=== PATIENT | male | born 1990 | race Caucasian/White ===

== ENCOUNTER 2025-09-29 19:05 | Emergency (ER) | payer MEDICAID ==
[2025-09-29 19:26] VITALS: TEMP 98
--- NOTE | 2025-09-29 19:55 | ERPHSYRPT ---
- History of Present Illness Time Seen by Provider: 09/29/25 19:12 Source: patient Exam Limitations: no limitations Patient Subjective Stated Complaint: c/o leg weakness and potentiel insect bite Triage Nursing Assessment: patient brought to ED by mother with c/o leg weakness and insect bite on left forearm. patient states that he has been having trouble walking the past few days. patient went to [facility] today in [place] and walked out. patient states," I think I got bit by a spider 4 days ago." patient vitals wnl, skin w/n/d, patient has multiple small round red nodules on left lower forearm. patient brought in by wheelchair, denies N/D, states he passed out yesterday and vomitted, doesn't appear to be in any distress at this time. Physician History: 35-year-old male presents to the emergency room bilateral leg numbness that is intermittent patient reports that he sleeps with his legs crossed and he wakes up with his legs falling asleep denies any swelling denies any trauma denies any bleeding or blood clot history denies any weakness patient does report some numbness and paresthesia-like feeling denies any trauma ambulatory baseline now in ED for further eval Timing/Duration: week(s) (1) Severity: mild Associated Symptoms: denies symptoms, No nausea Allergies/Adverse Reactions: morphine Allergy (Verified 09/29/25 19:27) Home Medications: No Reportable Medications [No Reported Medications] 09/29/25 [History] Hx Tetanus, Diphtheria Vaccination/Date Given: Yes Hx Influenza Vaccination/Date Given: No Hx Pneumococcal Vaccination/Date Given: No Travel Risk - International Travel Have you traveled outside of the country in past 3 weeks: No - Emerging Infectious Disease Are you exhibiting symptoms associated with any current EIDs: No - Review of Systems Constitutional: No Fever, No Chills Eyes: No Symptoms Ears, Nose, & Throat: No Symptoms Respiratory: No Cough, No Dyspnea Cardiac: No Chest Pain, No Edema, No Syncope Abdominal/Gastrointestinal: No Abdominal Pain, No Nausea, No Vomiting, No Diarrhea Genitourinary Symptoms: No Dysuria Musculoskeletal: Other (leg numbness), No Back Pain, No Neck Pain Skin: No Rash Neurological: No Dizziness, No Focal Weakness, No Sensory Changes Psychological: No Symptoms Endocrine: No Symptoms All Other Systems: Reviewed and Negative - Past Medical History Pertinent Past Medical History: Yes ENT History: Other Cardiac History: No Pertinent History Respiratory History: No Pertinent History Musculoskeletal History: No Pertinent History GI Medical History: No Pertinent History History: No Pertinent History Psycho-Social History: No Pertinent History Male Reproductive Disorders: No Pertinent History Other Medical History: lump found in lung, has been tolf he has Crohns disease but isn't for sure, damage to both eye lens - Past Surgical History Past Surgical History: Yes Other Surgical History: right eye surgery - Social History Smoking Status: Current every day smoker Exposure to second hand smoke: Yes Drug Use: marijuana - Social Determinants of Health Will the patient participate in the screening: Yes Do you worry about a steady place to live?: No Do you have any problems with any of the following?: No known problems In the past 12 months,have you had to go without utilities?: No Transportation Issues: No Has anyone in your support network made you feel unsafe?: No Have you or anyone in your house had to go w/o enough food: No - Nursing Vital Signs Nursing Vital Signs: Initial Vital Signs Temperature 98 F 09/29/25 19:12 Pulse Rate 81 09/29/25 19:12 Respiratory Rate 17 09/29/25 19:12 Blood Pressure 129/88 09/29/25 19:12 O2 Sat by Pulse Oximetry 100 09/29/25 19:12 Pain Scale Pain Intensity 2 - Physical Exam General Appearance: no apparent distress, alert Eye Exam: PERRL/EOMI, eyes nml inspection Ears, Nose, Throat Exam: normal ENT inspection, TMs normal, pharynx normal, moist mucous membranes Neck Exam: normal inspection, non-tender, supple, full range of motion Respiratory Exam: normal breath sounds, lungs clear, No respiratory distress Cardiovascular Exam: regular rate/rhythm, normal heart sounds, normal peripheral pulses Gastrointestinal/Abdomen Exam: soft, normal bowel sounds, No tenderness, No mass Back Exam: normal inspection, normal range of motion, No CVA tenderness, No vertebral tenderness Extremity Exam: normal inspection, normal range of motion, pelvis stable Neurologic Exam: alert, oriented x 3, cooperative, normal mood/affect, nml cerebellar function, nml station & gait, sensation nml, No motor deficits Skin Exam: normal color, warm, dry, No rash Lymphatic Exam: No adenopathy SpO2: 100 - Progress Progress Note: 09/29/25 19:52 Patient is likely suffering from some level of neuropathy denies any history of diabetes patient advised to follow-up with podiatry recommend close return precautions I have no suspicion of DVT at this time - Departure Departure Disposition: Home Clinical Impression: Leg numbness Condition: Stable Critical Care Time: No Referrals: ADAM SORIANO DPM [NON-STAFF PHY W/O PRIVILEGES, PODIATRY] - Follow up/PCP as directed ABRAHAM SOLER DPM [NON-STAFF PHY W/O PRIVILEGES, PODIATRY] - Follow up/PCP as directed PROMISE PANG DPM [NON-STAFF PHY W/O PRIVILEGES, PODIATRY] - Follow up/PCP as directed PETE TAI [NON-STAFF PHY W/O PRIVILEGES, GASTROENTEROLOGY] - Follow up/PCP as directed ALEX BURROWS MD [NON-STAFF PHY W/O PRIVILEGES, GASTROENTEROLOGY] - Follow up/PCP as directed CATHY DUPREE MD [NON-STAFF PHY W/O PRIVILEGES, GASTROENTEROLOGY] - Follow up/PCP as directed Instructions: Peripheral neuropathy, Neuropathic pain
[2025-09-29 20:22] VITALS: BP 135/107; PULSE 98; RESP 18; O2SAT 99
== END 2025-09-29 20:22 | disposition home or self-care (01) ==
LOC: ED 19:05
DX: R20.2 Paresthesia of skin (principal); Z72.0 Tobacco use